=== PATIENT | female | born 1970 | race Caucasian/White ===

== ENCOUNTER 2017-09-10 12:44 | Emergency (ER) | payer OTHER ==
--- NOTE | ~2017-09-10 | EKG ---
[facility] [address] [place], [place] [address] Draft EKG completed, results pending confirmation PATIENT NAME: ALHAJIYANNICKHAYDEN Electrocardiogram DATE OF : 74 PHYSICIAN: PRELIMINARY REPORT #: [id number] REPORT IS CONFIDENTIAL AND NOT TO BE RELEASED WITHOUT AUTHORIZATION
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
== END 2017-09-10 16:09 | disposition short-term general hospital (02) ==
LOC: ED 12:44 → EDBD 12:46 → ED 12:46
PROC: 5A12012 Performance of Cardiac Output, Single, Manual (ICD-10-PCS; principal; 2017-09-10)
PROC: 0T9B70Z Drainage of Bladder with Drainage Device, Via Natural or Artificial Opening (ICD-10-PCS; principal; 2017-09-10)
DX: I46.9 Cardiac arrest, cause unspecified (principal); T17.900A Unspecified foreign body in respiratory tract, part unspecified causing asphyxiation, initial encounter
CPT/HCPCS: 31720; 36600; 51702; 71045; 80053; 81001; 82803; 83735; 84484; 85025; 85610; 85730; 87077; 87088; 87186; 92950; 93005; 93010; 94002; 96361; 96365; 96367; 96375; 99285; G0480; J2250; J2543; J2704; J3411; J7030; J7042